=== PATIENT | male | born 1965 | race Two or more races ===

== ENCOUNTER 2025-06-03 02:26 | Emergency (ER) | payer OTHER ==
[~2025-06-03] VITALS: Ht 175.3 cm; Wt 69.9 kg
[2025-06-03] MEDS ORDERED: ATIVAN2 M1 PO (02:32)
[2025-06-03] MEDS ORDERED: RYTARY ER 23.71 EACH PO (02:33)
[2025-06-03] MEDS ORDERED: QUETIAPINE FUM400 M1 PO (02:33)
[2025-06-03] MEDS ORDERED: CARBIDOPA-LEVO1 EA11 NGT (02:34)
[2025-06-03] MEDS ORDERED: LORAZEPAM1 MG PO (02:34)
[2025-06-03] MEDS ORDERED: QUETIAPINE FUMA25 MG PO (02:34)
[2025-06-03] MEDS ORDERED: HALOPERIDOL LACTATE 5 MG/ML AMPUL IM STA (03:56)
[2025-06-03] MEDS ORDERED: DIPHENHYDRAMINE HCL 50 MG/ML VIAL 1ML IM STA (03:56)
[2025-06-03] MEDS ORDERED: 0.9 % SODIUM CHLORIDE 1,000 ML IV STA (03:58)
[2025-06-03 04:53] LABS: BASO % 0.4 % (0.1-1.2); EOS # 0.00 (0.04-0.54); EOS % 0.0 % (0.7-7.0); LYMPH # 0.73 (1.18-3.74); LYMPH % 8.0 % (19.3-53.1); MEAN PLATELET VOLUME 11.00 fl (9.4-12.4); MONO # 0.51 (0.24-0.82); MONO % 5.6 % (4.7-12.5); NEUT # 7.82 (1.56-6.13); NEUT % 85.6 % (34.0-71.1); RED CELL DISTRIBUTION WIDTH 12.7 % (11.6-14.4)
[2025-06-03 05:13] LABS: INR 1.04
[2025-06-03 05:15] LABS: BUN CREA RATIO 27.0 (7.0-25.0); CREATININE SERUM 0.89 mg/dL (0.70-1.30); GFR 87.79; GLUCOSE FASTING 126.0 mg/dL (65-100); OSMOLALITY SERUM 281.0 MOSM/KG (275-295)
== END 2025-06-03 16:33 | disposition home or self-care (01) ==
LOC: ER 02:26
DX: R41.0 Disorientation, unspecified (principal)